=== PATIENT | male | born 1975 | race Caucasian/White ===

== ENCOUNTER 2020-05-26 20:05 | Inpatient (IN) | payer BC, SELFPAY ==
[2020-05-26 22:18] VITALS: BMI 29.1
[2020-05-26] MEDS ORDERED: Ondansetron ODT 4 MG TAB PO PRN (22:18)
[2020-05-26] MEDS ORDERED: Ondansetron PF 4 MG/2 ML Vial IVP PRN (22:18)
[2020-05-26] MEDS ORDERED: Nitroglycerin 0.4 MG TAB (25 Tab Bottle) PO PRN (22:18)
[2020-05-26] MEDS ORDERED: Heparin 25,000 units/D5W 500 ML IVPB SCH (22:45)
--- NOTE | 2020-05-26 22:45 | PDOC.FPRHP ---
- History of Present Illness Chief Complaint: chest pain History of Present Illness: 44 yo without sig pmhx presents from an outside ED. he reports that at approx. 1100 this morning he began to have squeezing chest pain, diaphoresis, dyspnea, and tingling in his arms. the pain resolved somewhat over the next 4 hours to completion before arriving at outside ED. He denies any other symptoms or of having this kind of pain before. no known heart history, he does not see a pcp. in the outside ED labs were wnl except for a trop of .17 rising to .4. EKGs were wnl. Echo wnl. he was given asa, hep bolus, nitro, and metoprolol. Upon arriving at our hospital he denies any further chest pain, reports a headache and no other symptoms. ED Course: direct transfer from [facility] - Allergies/Adverse Reactions Allergies Allergy/AdvReac Type Severity Reaction Status Date / Time No Known Allergies Allergy Unverified 05/26/20 23:32 - Home Medications Medication Instructions Recorded Confirmed Type No Known 05/26/20 05/26/20 History - History PMHx: none PSHx: cholecystectomy FHx: unknown Social: former 15py smoker, social drinker, no drugs - Review of Systems General: denies: fever/chills, weight/appetite/sleep changes Eyes: denies: eye pain, vision changes ENT: denies: nasal congestion Respiratory: denies: cough, shortness of breath, exercise intolerance Cardiovascular: reports: chest pain. denies: palpitation, edema Gastrointestinal: denies: nausea, vomiting, diarrhea Genitourinary: denies: dysuria Skin: denies: rashes, lesions Musculoskeletal: denies: pain, tenderness Neurological: denies: numbness, syncope - Vital signs BP: 139/93 HR: 56 RR: 18 Tmax: 97.7 Pox: 96% on RA Wt: 97.38kg - Physical Exam Constitutional: NAD HEENT: normocephalic and atraumatic, grossly normal vision, grossly normal hearing Neck: supple, trachea midline Chest: no-tender to palpation Heart: RRR, normal S1/S2, pulses present, no edema Lungs: CTAB, no respiratory distress, good air movement Abdomen: soft, non-tender Musculoskeletal: normal structure, normal tone Neurological: no focal deficit, CN II-XII intact Skin: no rash/lesions, good turgor Heme/Lymphatic: no unusual bruising or bleeding Psychiatric: normal mood and affect FMR H&P: Results - EKG Interpretation EKG: regular rhythm, no T wave abnormalities or ST elevation FMR H&P: A/P - Problem List (1) NSTEMI (non-ST elevated myocardial infarction) Current Visit: Yes Status: Acute Code(s): I21.4 - NON-ST ELEVATION (NSTEMI) MYOCARDIAL INFARCTION - Plan NSTEMI - typical chest pain, troponin .17-->.4, no EKG abnormalities - ekg/nitro for chest pain, trend tropnonins - lovenox - flp pending - cardiology notified, official consult in AM pcp: none code: full dispo: inpatient tele for monitoring, LOS>48hrs FMR H&P: Upper Level - Plan Date/Time: 05/26/202237 I, [], have evaluated this patient and agree with findings/plan as outlined by sports internship resident. Pertinent changes/additions are listed here. Addendum - Attending - Attending Attestation Date/Time: 05/26/20 [id number] I personally evaluated the patient and discussed the management with Dr. Wu I agree with the History, Examination, Assessment and Plan documented above with any addition or exceptions noted below. 44 yo male with no known past medical history presents to outside ER for typical chest pain now transferred for cardiac evaluation. Patient noted substern chest pain/pressure. Radiated to neck and upper abdomen. Associated with SOB and diaphoresis. EKG and initial trop WNL. Second trop indeterminate at 0.1. 3rd trop increased to 0.4. CT scan performed at outside ER , reading pending. CD available to be reviewed by out rad team as needed. CP/ pressure now resolved and has not returned. VS, labs, ER records reviewed. - NSTEMI: Typical CP now with positive trop. TH lovenox started. Cards notified via TT incase need for urgent cath overnight pending EKG changes. Add statin and BB. Continue ASA. Trend trop and EKG throughout the night. - ppx: On lovenox. Hold GI at this time. - Consult cards in AM. Call during night as needed. "Heads-up" text sent upon patient arrival. Lc
[2020-05-26] MEDS ORDERED: Enoxaparin Sodium 100 MG/ML SYRINGE SC SCH (23:59)
[2020-05-27 01:42] LABS: Troponin I 1.297 ng/mL (< 0.028)
[2020-05-27 04:16] LABS: #Basophils 0.1 thou/uL (0.0-0.2); #Eosinphils 0.2 thou/uL (0.0-0.7); #Lymphocytes 4.1 thou/uL (1.20-3.40); #Monocytes 0.8 thou/uL (0.11-0.59); #Neutrophils 5.7 thou/uL (1.40-6.50); %Basophils 0.9 % (0.0-1.0); %Eosinophils 1.9 % (0.0-10.0); %Lymphocytes 37.2 % (21.0-51.0); %Monocytes 7.7 % (0.0-10.0); %Neutrophils 52.3 % (42.0-75.0); Hemoglobin 15.8 g/dL (14.0-18.0); Mean Corpuscular HGB CONC 33.6 g/dL (32.0-36.0); Mean Corpuscular Volume 92.3 fL (78.0-98.0); Mean Platelet Volume 7.7 fL (7.4-10.4); Platelet Count 261 thou/uL (130-400); RBC Distribution Width 12.4 % (11.5-14.5); Red Blood Cell (RBC) Count 5.09 mill/uL (4.70-6.10); White Blood Cell (WBC) Count 10.9 thou/uL (4.8-10.8)
[2020-05-27 04:57] LABS: Anion Gap 11 mmol/L (10-20); BUN (Urea Nitrogen) 11 mg/dL (8.9-20.6); Calc. Creatinine Clearance 117 mL/min (70-130); Calcium 8.7 mg/dL (7.8-10.44); Carbon Dioxide 27 mmol/L (22-29); Cardiac Risk 7.9 (Less than 4.5); Chloride 105 mmol/L (98-107); Cholesterol 228 mg/dl (< 200 Desired); Estimated GFR-MDRD 72; Glucose 87 mg/dL (70-105); HDL Cholesterol 29 mg/dL (>60 Neg Risk); LDL Cholesterol, Calculated 156 mg/dL; Sodium 139 mmol/L (136-145); Triglycerides 213 mg/dL (Less than 150)
[2020-05-27 05:07] LABS: Troponin I 1.427 ng/mL (< 0.028)
[2020-05-27 06:41] LABS: Critical Call Chem Troponin I RESULT DECREASING; Troponin I 1.293 ng/mL (< 0.028)
--- NOTE | 2020-05-27 06:48 | PDOC.FM ---
- Subjective Subjective: Doing well this morning. Chest pain and pressure has completely resolved. Yesterday, he states his pain was associated with numbness and tingling in his arms and hands especially, as well as diaphoresis and lightheadedness. The pain resolved within 2 hours, however a pressure remained until after he had been at the outlying ED. His family history is unknown due to him being adopted. His only modifiable cardiac risk factor is his smoking history of 15 pack years. He is not a current smoker. - Objective MAR Reviewed: Yes Vital Signs & Weight: Vital Signs (12 hours) Temp Pulse Resp BP Pulse Ox 05/27/20 03:10 97.6 F 66 16 128/72 97 05/26/20 23:24 54 L 129/86 05/26/20 21:25 97.7 F 56 L 18 139/93 H 96 05/26/20 21:15 96 Weight Weight 97.386 kg I&O: 05/25/20 05/26/20 05/27/20 06:59 06:59 06:59 Intake Total 410 Output Total 450 Balance -40 Result Diagrams: 05/27/20 03:49 05/27/20 03:49 Phys Exam - Physical Examination Constitutional: NAD HEENT: PERRLA, moist MMs Respiratory: no wheezing, no rales, no rhonchi, clear to auscultation bilateral Cardiovascular: RRR, no significant murmur, no rub Gastrointestinal: soft, non-tender Musculoskeletal: no edema, pulses present Neurological: non-focal, moves all 4 limbs Psychiatric: normal affect, A&O x 3 Skin: no rash, normal turgor Dx/Plan (1) NSTEMI (non-ST elevated myocardial infarction) Code(s): I21.4 - NON-ST ELEVATION (NSTEMI) MYOCARDIAL INFARCTION Status: Acute - Plan Plan: NSTEMI - EKG showed no acute changes. - Troponins trended from 0.4 (outside ED?) to 1.297 > 1.427 > 1.293 - On therapeutic Lovenox - Will consult cardiology for further intervention and recommendations. PCP: None Code Status: Full VTE: Th Lovenox Dispo: Inpatient tele for monitoring, LOS>48hrs
[2020-05-27] MEDS ORDERED: Enoxaparin Sodium 100 MG/ML SYRINGE SC SCH (09:00)
[2020-05-27] MEDS ORDERED: Iopamidol 370 76% 100 ML VIAL ONE (10:00)
[2020-05-27 10:16] LABS: Amphetamine Not Detected (NotDetected); Barbiturates Screen Not Detected (NotDetected); Benzodiazepine Screen Not Detected (NotDetected); Cocaine Metabolite Screen Not Detected (NotDetected); Medtox Control Line Valid? VALID (VALID); Medtox Reader # READER 1; Methadone Not Detected (NotDetected); Methamphetamine Not Detected (NotDetected); Opiate Screen Detected (NotDetected); Oxycodone Screen Not Detected (NotDetected); Phencyclidine (PCP) Not Detected (NotDetected); THC/Cannabinoid Screen Not Detected (NotDetected); Tricyclic Screen Not Detected (NotDetected)
[2020-05-27] MEDS ORDERED: Aspirin 81 mg Enteric Coated Tablet PO SCH (14:00)
[2020-05-27] MEDS ORDERED: Communication Order-Pharmacy FS SCH (14:00)
[2020-05-27] MEDS ORDERED: Sodium Chloride 0.9% 1,000 ML IV SCH (14:00)
--- NOTE | 2020-05-27 14:15 | CON ---
DATE OF CONSULTATION: 05/27/2020 REASON FOR CONSULTATION: Non-STEMI. HISTORY OF PRESENT ILLNESS: Mr. Umana is a 44-year-old white gentleman, who comes to the hospital for chest pain. He states that yesterday at 11:00 a.m., he began having a squeezing sensation in his chest with diaphoresis and dyspnea with tingling on his left arm. After 4 hours, pain resolved. He arrived in the ER pain-free. Troponins were drawn and have increased to a positive range, so Cardiology is being consulted for this. On my evaluation, Mr. Umana is pain free. PAST MEDICAL HISTORY: None. PAST SURGICAL HISTORY: Cholecystectomy. FAMILY HISTORY: He is adopted, so is unknown. SOCIAL HISTORY: He used to smoke about a pack a day for the last 15 years, but quit about 6 months ago. Social alcohol use. No drug use. REVIEW OF SYSTEMS: A 12-point review of systems was done and was all negative unless stated in the history of present illness. OUTPATIENT MEDICATIONS: None. ALLERGIES: NO KNOWN DRUG ALLERGIES. PHYSICAL EXAMINATION: VITAL SIGNS: Temperature 98.4, pulse 55, respiratory rate 16, sat 97% on room air, blood pressure 128/88. GENERAL: Awake, alert, and oriented x3, in no distress. HEENT: Normocephalic and atraumatic. NECK: Supple. LUNGS: Clear. CARDIOVASCULAR: S1, S2. No S3 or S4. No murmurs. ABDOMEN: Soft. Positive bowel sounds. EXTREMITIES: No edema. SKIN: Warm and dry. LABORATORY DATA: Laboratory work was reviewed. White count of 10.9, hemoglobin of 15.8, hematocrit of 47, and platelet count of 261. Chemistry showed normal BUN of 11, creatinine 1.1, GFR of 72. Troponin was 1.2, then 1.4 and back down 1.2. Triglycerides were 213, cholesterol was 228, LDL of 156, HDL of 29. Toxicology was negative, except for urine opiates. EKG was reviewed. ASSESSMENT: Lax-EC-ounrvgkru myocardial infarction. PLAN: We spoke about risks and benefits of the heart catheterization. Risks included, but not limited to, stroke, NH, , bleeding, need for blood transfusion, limb loss, organ loss. The patient understands and verbalized understanding of this and agrees to proceed. Moderate sedation was also discussed as well as bare-metal stent versus drug-eluting stent. Per , she tells me that it is probably best to just do a bare-metal stent, as she is unsure of his compliance. We will plan on bringing him down for heart catheterization from the femoral approach and we will do bare-metal stents if needed. Thank you for letting us participate in the care of your patient. We will follow. Job ID: [id number]
[2020-05-27] MEDS ORDERED: Midazolam HCl 2 mg/2 ml Vial ONE (14:20)
[2020-05-27] MEDS ORDERED: Fentanyl 100 MCG/2 ML VIAL ONE (14:20)
[2020-05-27] MEDS ORDERED: Sodium Chloride 0.9% 200 ML IV PRN (14:44)
[2020-05-27] MEDS ORDERED: Acetaminophen/Codeine 30-300mg Tablet PO PRN (14:44)
[2020-05-27] MEDS ORDERED: Sodium Chloride 0.9% 500 ML IV SCH (15:00)
[2020-05-27 19:49] VITALS: BP 145/96; TEMP 97.9
[2020-05-27] MEDS ORDERED: Atorvastatin Calcium 40 MG TAB PO SCH (21:00)
--- NOTE | 2020-05-27 21:38 | PRG ---
DATE OF SERVICE: 05/27/2020 The patient is seen, evaluated, and discussed with the residents by bedside. This gentleman is status post admission for an [place]. He does not have many other risk factors for reason for troponin bump, symptomatic, now entirely asymptomatic on therapeutic Lovenox. Waiting on the toll service observer recommendations, likely going to do a heart catheterization on him. Exam is totally benign and we will wait and see what cardiology says. Job ID: [id number]
[2020-05-28] MEDS ORDERED: Aspirin 81 mg Enteric Coated Tablet PO SCH (09:00)
--- NOTE | 2020-05-28 10:12 | DIS ---
DATE OF ADMISSION: 05/26/2020 DATE OF DISCHARGE: 05/27/2020 DISCHARGE ATTENDING: Dr. Narvaez. RESIDENT: Aminata Lindsay MD. CONSULT: Dr. Adi Isabel. PROCEDURES: Heart catheterization. PRIMARY DIAGNOSIS: Non ST-elevation myocardial infarction. SECONDARY DIAGNOSIS: Hypercholesterolemia. MEDICATIONS: Discharge medications: 1. Aspirin 81 mg p.o. daily. 2. Atorvastatin 40 mg p.o. nightly. 3. Nitroglycerin 0.4 mg p.o. q.5 minutes p.r.n. for chest pain. Discontinued medications, none. HISTORY OF PRESENT ILLNESS/HOSPITAL COURSE: Mr. Umana is a previously healthy 44-year-old male, who presented to an [facility] ER for chest pain on the morning of the . He describes the pain as squeezing. He had associated diaphoresis and dyspnea along with tingling in his arms. Over the next several hours, his pain progressively lessened. He then describes chest pressure that lasted throughout much of the rest of the day. He was transferred from [facility] to [facility] ER for admission due to a rise in troponin. His troponins went from 0.17 to 0.14 to 1.427 down to 1.293. Other notable labs, his triglycerides were 213. His cholesterol was 228, LDL was 156, HDL 29. His ASCVD risk was 12.9%, which indicates that he should be on a high-intensity statin. Left heart catheterization was done, which showed mild coronary artery disease, no blockages. He required no stents. He was discharged to home on a statin and aspirin therapy with nitroglycerin p.r.n. for chest pain. He will follow up with Dr. Isabel outpatient. DISPOSITION: Stable. DISCHARGE INSTRUCTIONS: 1. Location: Home. 2. Diet: Heart healthy. 3. Activity: Ad jimmy. 4. Followup: Follow up with primary care physician within 7 [address] then [address] Isabel thereafter. Job ID: [id number] [facility]
== END 2020-05-27 18:50 | disposition home or self-care (01) | DRG 282 ==
LOC: 2NO 21:19
PROVIDERS: ADMIT Student in an Organized Health Care Education/Training Program; ATTEND Student in an Organized Health Care Education/Training Program
PROC: 4A023N7 Measurement of Cardiac Sampling and Pressure, Left Heart, Percutaneous Approach (ICD-10-PCS; principal; 2020-05-27)
PROC: B2111ZZ Fluoroscopy of Multiple Coronary Arteries using Low Osmolar Contrast (ICD-10-PCS; 2020-05-27)
PROC: B2151ZZ Fluoroscopy of Left Heart using Low Osmolar Contrast (ICD-10-PCS; 2020-05-27)
DX: I21.4 Non-ST elevation (NSTEMI) myocardial infarction (principal); I25.10 Atherosclerotic heart disease of native coronary artery without angina pectoris; E78.00 Pure hypercholesterolemia, unspecified; Z90.49 Acquired absence of other specified parts of digestive tract; Z87.891 Personal history of nicotine dependence
CPT/HCPCS: 36415; 80048; 80061; 80306; 84484; 85025; 93005; 93010; 94760; C1760; J1644; J1650; J2250; J3010; Q9967